=== PATIENT | female | born 1985 | race Caucasian/White ===

== ENCOUNTER → 2016-05-09 | Outpatient (CLI) | payer MEDICAID ==
[~2016-05-09] MED LIST: ARIPIPRAZOLE5 MG PO; BUSPIRONE HCL15 MG PO; DITROPAN5 MG PO; NICODERM / HABIT7 MG TRANS; SINGULAIR10 MG PO; TRAZODONE HCL50 MG PO; TRIACET 0.1% 8080 GM TOP; VALTREX (NON-F500 MG PO
== END | disposition disaster alternative care site (69) ==
LOC: LGSMG 12:35
DX: Z20.2 Contact with and (suspected) exposure to infections with a predominantly sexual mode of transmission (principal)